=== PATIENT | female | born 1980 | race Caucasian/White ===

== ENCOUNTER 2017-01-08 00:59 | Emergency (ER) | payer SELFPAY ==
[2017-01-08] MEDS ORDERED: CHLORDIAZEPOXIDE 25MG PREPK#6 BTL TAKEHOME ONE (01:19)
[2017-01-08] MEDS ORDERED: chlordiazePOXIDE 25 MG CAP PO ONE (01:19)
[2017-01-08] MEDS ORDERED: ONDANSETRON DISINTEGRATING 4 MG TAB ONE (01:20)
[2017-01-08] MEDS ORDERED: ONDANSETRON DISINTEGRATING 4 MG TAB PO ONE ×2 (01:21→01:23)
[2017-01-08] MEDS ORDERED: LORazepam 1 MG TAB PO ONE (01:43)
--- NOTE | 2017-01-08 01:45 | EDPHY ---
H & P Stated Complaint: alcohol withdrawal last alcohol yesterday Source: Patient Exam Limitations: No limitations - Personal History LMP (Females 10-55): 8-14 Days Ago Current Tetanus/Diphtheria Vaccine: Yes - Medical/Surgical History Hx Asthma: No Hx Chronic Respiratory Disease: No Hx Diabetes: No Hx Cardiac Disease: No Hx Renal Disease: No Hx Cirrhosis: No Hx Alcoholism: Yes Hx HIV/AIDS: No Hx Splenectomy or Spleen Trauma: No Other PMH: PMHx: alcoholism. PSHx: denies - Social History Smoking Status: Never smoked Time Seen by Provider: 01/08/17 01:41 MDT HPI/ROS: HPI: This is a 36-year-old female who presents with Chief Complaint: alcohol withdrawal last alcohol yesterday Location: body Quality: Alcohol withdrawal Duration: Starting today Signs and Symptoms: No suicidal ideation, no homicidal ideation, no hallucinations, no seizure activity Timing: Gradual onset, intermittent in nature Severity: Moderate Context: Patient reports that she was sober for the last 5 years from alcohol use but relapse over the last 2 weeks. Her drink of choice is peppermint schnapps. Her last drink was yesterday. She was sent over from the [facility] for withdrawal symptoms. She reports that she feels nauseous without emesis several times over the last couple of hours, anxiety, tremors. She denies any prior history of alcohol withdrawal seizures/delirium tremens. LMP 1-2 weeks ago. She denies any significant medical problems. She denies any chest pain/ shortness of breath/headache/fever. Modifying Factors: Comment: ROS: see HPI Constitutional: No fever, no chills, no weight loss Eyes: No blurred vision Respiratory: No shortness of breath, no cough Cardiovascular: No chest pain Gastrointestinal: + nausea, + vomiting, no diarrhea Genitourinary: No dysuria Extremities: No myalgias Neurologic: No weakness, no numbness Skin: No rashes Hematologic: No bruising, no bleeding MEDICAL/SURGICAL/SOCIAL HISTORY: Medical history: Generally healthy. Does not take any regular medications. Surgical history: Denies Social history: Unemployed CONSTITUTIONAL: Pleasant, actively dry heaving adult white female, awake and alert, no obvious distress HEENT: Atraumatic and normocephalic, PERRL, EOMI. Tympanic membranes clear. Oropharynx clear, no exudate and moist pink mucosa. Airway patent. No lymphadenopathy. No meningismus. Cardiovascular: Normal S1/S2, mild tachycardia, regular rhythm, without murmur rub or gallop. PULMONARY/CHEST: Symmetrical and nontender. Clear to auscultation bilaterally. Good air movement. No accessory muscle usage. ABDOMEN: Soft, nondistended, nontender, no rebound, no guarding, no peritoneal signs, no masses or organomegaly. No CVAT. EXTREMITIES: 2/2 pulses, strength 5/5, no deformities, no clubbing, no cyanosis or edema. NEUROLOGICAL: no focal neuro deficits. GCS 15. SKIN: Warm and dry, no erythema. no rash. Good capillary refill. (Katherine Truong) Constitutional: Initial Vital Signs Temperature (C) 36.5 C 01/08/17 01:02 MDT Heart Rate 111 H 01/08/17 01:02 MDT Respiratory Rate 20 01/08/17 01:02 MDT Blood Pressure 117/80 01/08/17 01:02 MDT O2 Sat (%) 98 01/08/17 01:02 MDT O2 Delivery Mode Room Air Allergies/Adverse Reactions: No Known Allergies Allergy (Unverified 01/08/17 01:02 MDT) Home Medications: Medication Instructions Recorded NK [No Known Home Meds] 01/08/17 Medical Decision Making ED Course/Re-evaluation: CIWA=8 upon arrival Vital signs show mild tachycardia Given p.o. Librium 50 mg and p.o. Zofran 4 mg ODT. After 2 hours in the ER: Patient is alert and oriented x4; ambulates without difficulty. CIWA=1 Patient will be discharged to the [facility] with Librium prepack. (Katherine Truong) PHYSICIAN DOCUMENTATION: The patient was evaluated and managed by the Physician [employer] Developer. My co- signature indicates that I have reviewed this chart and I agree with the findings and plan of care as documented. I am the secondary supervising physician. (Steffi Stevens) Differential Diagnosis: Differential diagnosis includes but is not limited to electrolyte imbalance, alcohol withdrawal. (Katherine Truong) - Data Points Medications Given: Discontinued Medications Chlordiazepoxide (Librium 25 Mg Prepack#6) 1 btl TAKEHOME EDNOW ONE Stop: 01/08/17 01:20 MST Last Admin: 01/08/17 01:21 MDT Dose: 1 btl Chlordiazepoxide HCl (Librium) 50 mg PO EDNOW ONE Stop: 01/08/17 01:20 MST Last Admin: 01/08/17 01:21 MDT Dose: 50 mg Lorazepam (Ativan) 1 mg PO EDNOW ONE Stop: 01/08/17 01:44 MST Last Admin: 01/08/17 01:44 MST Dose: 1 mg Ondansetron HCl (Zofran Odt) 4 mg PO EDNOW ONE Stop: 01/08/17 01:24 MST Last Admin: 01/08/17 01:25 MDT Dose: 4 mg Ondansetron HCl (Zofran Odt) 4 mg PO EDNOW ONE Stop: 01/08/17 01:22 [facility] Last Admin: 01/08/17 01:22 MST Dose: 4 mg Departure - Departure Disposition: Other Psych, Not [facility] Clinical Impression: Alcohol withdrawal Qualifiers: Complication of substance-induced condition: uncomplicated Qualified Code(s): F10.230 - Alcohol dependence with withdrawal, uncomplicated Condition: Fair Instructions: Chlordiazepoxide/Clidinium (By mouth), Alcohol Withdrawal (ED) Referrals: [facility] 24 Hours [Outside] - As per Instructions
[2017-01-08 03:46] VITALS: RESP 16; TEMP 97.9; O2SAT 96
[2017-01-08 04:34] VITALS: BP 117/74; PULSE 84
== END 2017-01-08 04:33 ==
DX: F10.230 Alcohol dependence with withdrawal, uncomplicated (principal)